=== PATIENT | female | born 1960 | race Caucasian/White ===

== ENCOUNTER 2018-04-22 09:52 | Day surgery (SDC) | payer OTHER ==
[2018-04-22] MEDS ORDERED: FENTANYL 100MCG/2ML SOL ONE ×2 (10:31→12:22)
[2018-04-22] MEDS ORDERED: LIDOCAINE HCL 1% MPF 30 SOL ONE (10:31)
[2018-04-22] MEDS ORDERED: PROPOFOL 10 MG/ML EMU IV ONE (10:55)
[2018-04-22] MEDS ORDERED: CEFAZOLIN SODIUM 1 GM PDS ONE (12:07)
[2018-04-22] MEDS ORDERED: KETOROLAC TROMETHAMINE 30 MG/ML SOL ONE (13:00)
[2018-04-22] MEDS ORDERED: KETOROLAC TROMETHAMINE 30 MG/ML SOL IV ONE (13:02)
[2018-04-22] MEDS: MORPHINE SULFATE 10 MG/ML SOL ONE ×3 (13:49→14:18)
[2018-04-22 13:57] VITALS: BP 119/66; PULSE 58; RESP 18; TEMP 96.4; O2SAT 99
== END 2018-04-22 14:46 | disposition home or self-care (01) | DRG 950 ==
LOC: SURG 09:52
PROVIDERS: ATTEND Orthopaedic Surgery
DX: S83.242D Other tear of medial meniscus, current injury, left knee, subsequent encounter (principal); M71.22 Synovial cyst of popliteal space [Baker], left knee
CPT/HCPCS: J0690; J1885; J2270; J3010; J2001; J2704

== ENCOUNTER 2018-06-03 11:02 | Outpatient (CLI) | payer OTHER ==
[2018-04-22 13:57] VITALS: O2SAT 99
[2018-06-03 22:32] LABS: *RHEUMATOID FACTOR <10 IUnits/mL (<30)
[2018-06-05 07:06] LABS: *ANA SCREEN 1.5 U
[2018-06-05 10:23] LABS: *LYME DISEASE SCREEN Negative (Negative)
== END 2018-06-03 11:03 | disposition home or self-care (01) | DRG 561 ==
LOC: CONVCARE 11:02
PROVIDERS: ATTEND Orthopaedic Surgery
DX: Z47.89 Encounter for other orthopedic aftercare (principal); M25.562 Pain in left knee; M25.561 Pain in right knee
CPT/HCPCS: 36415; 85651

== ENCOUNTER 2018-07-08 12:41 | Outpatient (CLI) | payer OTHER ==
[2018-04-22 13:57] VITALS: O2SAT 99
[2018-07-09 12:41] LABS: *BODY FL SPEC TYPE LEFT KNEE ASPIRATE
== END 2018-07-08 12:42 | disposition home or self-care (01) | DRG 558 ==
LOC: CONVCARE 12:41
PROVIDERS: ATTEND Orthopaedic Surgery
DX: M71.22 Synovial cyst of popliteal space [Baker], left knee (principal); M25.462 Effusion, left knee
CPT/HCPCS: 87070; 87075

== ENCOUNTER 2018-07-22 11:11 | Day surgery (SDC) | payer OTHER ==
[~2018-07-22 11:11] MED LIST: FENTANYL 100MCG/2ML SOL ONE; MIDAZOLAM 2 MG/2 ML SOL ONE; ONDANSETRON HCL 4 MG/2 ML SOL ONE; PROPOFOL 10 MG/ML 200 MG/20 ML EMU IV ONE
[2018-07-22] MEDS ORDERED: CEFAZOLIN SODIUM 1 GM PDS ONE (12:58)
[2018-07-22] MEDS ORDERED: FENTANYL 100MCG/2ML SOL ONE (13:05)
[2018-07-22] MEDS ORDERED: PROPOFOL 10 MG/ML 200 MG/20 ML EMU IV ONE (14:03)
[2018-07-22] MEDS ORDERED: KETOROLAC TROMETHAMINE 30 MG/ML SOL ONE (14:15)
[2018-07-22] MEDS ORDERED: HYDROMORPHONE 1 MG/ML SYRINGE ONE (14:15)
[2018-07-22 14:17] VITALS: TEMP 97.3
[2018-07-22 14:41] LABS: PATHOLOGY SPEC OR BIOPSY REFER MAYO/MKTO PATH
[2018-07-22] MEDS ORDERED: APAP/HYDROCODONE 1 EACH TABLET ONE (15:37)
[2018-07-22 15:44] VITALS: BP 118/65; PULSE 76; RESP 20; O2SAT 94
== END 2018-07-22 16:35 | disposition home or self-care (01) | DRG 558 ==
LOC: SURG 11:11
PROVIDERS: ATTEND Orthopaedic Surgery
DX: M71.22 Synovial cyst of popliteal space [Baker], left knee (principal); S83.242D Other tear of medial meniscus, current injury, left knee, subsequent encounter; M94.262 Chondromalacia, left knee
CPT/HCPCS: 99001; J0690; J1885; J2250; J2405; J3010; A6402; A9270-GY; J1170; J2704; L1830

== ENCOUNTER 2018-09-02 09:24 | Outpatient (CLI) | payer OTHER ==
[2018-07-22 15:44] VITALS: O2SAT 94
== END 2018-09-02 09:25 | disposition home or self-care (01) | DRG 951 ==
LOC: CONVCARE 09:24
PROVIDERS: ATTEND Orthopaedic Surgery
DX: Z98.890 Other specified postprocedural states (principal); Z47.89 Encounter for other orthopedic aftercare

== ENCOUNTER 2019-05-25 16:52 | Emergency (ER) | payer OTHER ==
[2019-05-25 17:02] VITALS: RESP 18; TEMP 97.8; O2SAT 97
[2019-05-25 17:06] VITALS: BP 132/70; PULSE 72
[2019-05-25] MEDS ORDERED: LIDOCAINE HCL 2% MPF 10 ML SOL ONE (17:13)
[2019-05-25] MEDS ORDERED: LIDOCAINE HCL 2% MPF 10 ML SOL SC ONE (18:00)
[2019-05-25] MEDS ORDERED: LIDOCAINE HCL 1% 50 MG/5 ML SOL INFIL ONE (18:00)
== END 2019-05-25 18:27 | disposition home or self-care (01) | DRG 605 ==
LOC: ED 16:52
DX: S61.210A Laceration without foreign body of right index finger without damage to nail, initial encounter (principal); W45.8XXA Other foreign body or object entering through skin, initial encounter
CPT/HCPCS: 12001; 99282; 99283; A6402